=== PATIENT | female | born 1945 | race Caucasian/White ===

== ENCOUNTER 2016-08-25 12:11 | Emergency (ER) | payer MEDICARE ==
[2016-08-25] MEDS ORDERED: Ondansetron ODT 4 MG TAB ONE (12:43)
--- NOTE | 2016-08-25 13:35 | CT ---
EXAM: NONCONTRAST HEAD CT: COMPARISON: 12/10/14. HISTORY: Trauma. TECHNIQUE: A noncontrast head CT is performed from the skull base to the skull vertex. FINDINGS: There is a small right parietal scalp hematoma, near the vertex. The underlying calvarium is intact . Remainder of the calvarium is also intact. No parenchymal hemorrhage. No extraaxial hematoma. No midline shift. Basilar cisterns are patent. Age-appropriate atrophy. Cortical mosley-white matter differentiation is preserved. Ventricles and sulci are patent and symmetric. Stable calcified mass, extraaxial in location measuring 2.0 cm. Calcified meningioma is favored. IMPRESSION: 1. No intracranial posttraumatic sequelae. 2. Chronic small-vessel ischemic changes of white matter. 3. Calcified meningioma, stable. POS: [facility]
--- NOTE | 2016-08-25 13:37 | CT ---
CT CERVICAL SPINE NONCONTRAST: History: Neck injury. FINDINGS: There is straightening of the normal lordotic curvature. Vertebral body height and alignment are ma intained. Osteophytosis is present throughout the vertebral bodies and facets. No acute fracture o r dislocation are evident. IMPRESSION: Cervical spondylosis. No acute osseous abnormalities are demonstrated. POS: [facility]
[2016-08-25] MEDS ORDERED: HYDROcodone/Acetaminophen 5/325 mg Tablet ONE (13:55)
[2016-08-25] MEDS ORDERED: Ibuprofen 600 MG TAB ONE (13:55)
--- NOTE | 2016-08-25 15:38 | PICIS ---
[facility] EMERGENCY RECORD TRIAGE (WedAug 25, 2016 12:20 MDEB) PATIENT: NAME: Chaparrita Patterson, AGE: 71, GENDER: female, : Wed1945, TIME OF GREET: WedAug 25, 2016 12:12, PREFERRED LANGUAGE: Chinese, RACE: WHITE, ETHNICITY: Not or , FALL RISK: NO, ECODE BILLING MAP: [facility], SSN: [id number], Zip Code: [address], KG WEIGHT: [phone], PHONE: , , , PERSON ID: [id number], PCP: MD Conley Grover. (WedAug 25, 2016 12:20 MDEB) TRIAGE NOTES: FALL ONTO CONCRETE DRIVING FROM STEP LADDER - DENIES LOC. (WedAug 25, 2016 12:20 MDEB) COMPLAINT: FELL-HEAD PAIN. (WedAug 25, 2016 12:20 MDEB) ADMISSION: URGENCY: 3 Urgent, ADMISSION SOURCE: Home, TRANSPORT: Walk-in, BED: TRIAGE. (WedAug 25, 2016 12:20 MDEB) ASSESSMENT: Assessment: R WRIST PAIN, HEAD, NECK ET L SHOULDER PAIN. LARGE HEMATOMA TO R OCCIPUT. (WedAug 25, 2016 12:20 MDEB) TRIAGE SCREENING: Patient denies suicidal ideation, Patient denies presence of domestic violence. (WedAug 25, 2016 12:20 MDEB) PROVIDERS: TRIAGE NURSE: Jessica Hunter RN. (WedAug 25, 2016 12:20 MDEB) VITAL SIGNS: BP 158/83, Pulse 83, Resp 20, Temp 98.3, (Tympanic), O2 Sat 96, Time 08/25/2016 12:17. (12:17 MDEB) PREVIOUS VISIT ALLERGIES: No Known Drug Allergies, Laverne Flavoring. (WedAug 25, 2016 12:20 MDEB) KNOWN ALLERGIES No Known Allergies No Known Drug Allergies (Unconfirmed) Laverne Flavoring (Unconfirmed) CURRENT MEDICATIONS No recorded medications VITAL SIGNS (12:17 MDEB) VITAL SIGNS: BP: 158/83, Pulse: 83, Resp: 20, Temp: 98.3 (Tympanic), O2 sat: 96, Time: 08/25/2016 12:17. NURSING ASSESSMENT: PRIMARY SURVEY TRAUMA (12:32 MDEB) MECHANISM OF INJURY: Mechanism of injury fall, from ladder, from height less than 3 feet, down 2 stairs, landing on hard surface, landing on head, landing on left side, landing on right side, Notes: LARGE HEMATOMA TO R OCCIPUT R WRIST PAIN, L SCAPULAR PAIN. AIRWAY AND C-SPINE: Primary trauma survey airway and cervical spine assessment findings include airway patent, Gag reflex intact, Cervical spine tenderness, REPORTS STIFFNESS C-COLLAR APPLIED. BREATHING: Primary trauma survey breathing assessment findings &a-1R&a+25V*p+0X*c2261K*c202B*c15G*c2P*p-0X&a-25V&a+1R Name: Chaparrita Patterson : 1945 F71 MedRec: [id number] AcctNum: [id number] Prepared: Asher Aug 25, 2016 15:47 by Interface Page 1 of 10 pMD [facility] EMERGENCY RECORD include trachea midline, Breath sounds equal. CIRCULATION: Primary trauma survey circulation assessment findings include palpable pulse, Heart sounds normal. DISABILITY: Primary trauma survey disability assessment findings include patient alert and oriented to person, place and time, Pupils equally round and reactive to light, Movement to all extremities, GCS:, Eye opening: (4) - Spontaneous, Verbal: (5) - Oriented/conversive, Motor: (6) - Obeys commands/Spontaneous, GCS Total: 15. NOTES: Emotional support needed and given, Patient tolerated procedure well. NURSING ASSESSMENT: SECONDARY SURVEY TRAUMA (12:35 MDEB) MECHANISM OF INJURY: Mechanism of injury fall, from standing, from height less than 3 feet, down 2 stairs, landing on hard surface, landing on head, landing on left side, landing on right side. CONSTITUTIONAL: Patient arrives ambulatory, Gait steady, History obtained from patient, Patient appears, in distress due to pain, obese, uncomfortable, Patient cooperative, Patient alert, Oriented to person, place and time, Skin warm, Skin dry, Skin normal in color, Mucous membranes pink, Mucous membranes moist, Patient is well-groomed, Patient complains of R SIDE HEAD, R WRIST, L SCAPULAR PAIN, PT PRESENTS WITH ICE PACK TO HEAD - R SIDE OCCIPUT. PAIN: aching pain, on a scale 0-10 patient rates pain as 8, ICE PACK APPLIED BY PT, Pain exacerbated by nothing. SKIN: Skin assessment findings include skin warm, Skin dry, Skin normal in color, Inspection findings include abrasion, to R WRIST. BURN LOCATION: N/A. NEURO: Pupils equally round and reactive to light, Left pupil 3 mm in size, Right pupil 3 mm in size, Able to close eyes, Face symmetrical, Speech normal, GCS:, Eye opening: (4) - Spontaneous, Verbal: (5) - Oriented/conversive, Motor: (6) - Obeys commands/Spontaneous, GCS Total: 15, Associated with nausea. EYES: Eye assessment findings include orbits normal, Eye lids normal, Conjunctiva normal, Sclera normal, Cornea clear, Iris normal, Pupils equally round and reactive to light. HEAD TRAUMA: Inspection findings include swelling, to R SIDE OCCIPUT, Notes: PT PRESENTED WITH ICE PACK TO HEAD - PT DENIES LOC. NECK: Neck assessment findings include trachea midline, Notes: C/O STIFFNESS - C-COLLAR APPLIED. NECK TRAUMA: Neck trauma assessment findings include trachea midline. BACK: Back assessment findings include tenderness to, &a-1R&a+25V*p+0X*r5442Q*c202B*c15G*c2P*p-0X&a-25V&a+1R Name: Chaparrita Patterson : 1945 F71 MedRec: [id number] AcctNum: [id number] Prepared: Asher Aug 25, 2016 15:47 by Interface Page 2 of 10 pMD [facility] EMERGENCY RECORD the left upper back, Notes: TO SCAPULA. BACK TRAUMA: Notes: SKIN TO R WRIST ABRASION OPEN. DRIED BLOOD TO AREA. RESPIRATORY/CHEST: Breath sounds clear, Respiratory assessment findings include respiratory effort easy, Respirations regular, Conversing normally, Neck and chest exam findings include trachea midline, Chest expansion equal, Chest movement symmetrical. CARDIOVASCULAR: Cardiovascular assessment findings include heart rate normal, Heart rhythm, sinus arrhythmia. THORACIC TRAUMA: Thoracic trauma assessment findings include chest movement symmetrical. ABDOMEN: Abdomen assessment findings include abdomen symmetrical, Abdomen soft. GENITOURINARY FEMALE: Notes: DEFERRED AT THIS TIME. LEFT UPPER EXTREMITY: Left upper extremity assessment findings include capillary refill less than 2 seconds, Skin color normal to hand, Skin temperature to hand warm, Distal sensation intact, Muscle tone normal. RIGHT UPPER EXTREMITY: Right upper extremity assessment findings include capillary refill less than 2 seconds, Skin color normal to hand, Skin temperature to hand warm, Distal sensation intact, Muscle tone normal, Inspection findings include abrasion, to R POSTERIOR WRIST. UPPER EXTREMITY TRAUMA: Notes: BLEEDING TO ABRASION CONTROLLED. LEFT LOWER EXTREMITY: Left lower extremity assessment findings include capillary refill less than 2 seconds, Skin color normal, Skin temperature warm, Distal sensation intact, Muscle tone normal. RIGHT LOWER EXTREMITY: Right lower extremity assessment findings include capillary refill less than 2 seconds, Skin color normal, Skin temperature warm, Distal sensation intact, Muscle tone normal. PSYCH/SOCIAL: Psychiatric/social assessment findings include affect normal. NOTES: Emotional support needed and given, Patient tolerated procedure well. SAFETY: Cart/Stretcher in lowest position, Family at bedside, Call light within reach, Hospital ID band on. NURSING PROCEDURE: NURSE NOTES NURSES NOTES: Notes: PT RETURNED TO ROOM. (13:14 PATRICK) Notes: PT RETURNED TO MONITORING EQUIPMENT - PAIN TO HEAD RATED 7/10. (13:17 PATRICK) ORDER DETAILS Order Name: C SPINE CERV COLLAR APPLICATIO, Status: Done, Time: 12:50 08/25/2016, User: PATRICK, - Ordered for: MD Selby Anthony, - Entered by: MD Selby Anthony - Tue Aug 25, 2016 12:43, - Quantity: 1, &a-1R&a+25V*p+0X*r5522J*c202B*c15G*c2P*p-0X&a-25V&a+1R Name: Leonardo Chaparrita Ajay : 1945 F71 MedRec: [id number] AcctNum: [id number] Prepared: Asher Aug 25, 2016 15:47 by Interface Page 3 of 10 pMD [facility] EMERGENCY RECORD Order Name: CT Brain WO Con, Status: Active, Time: 12:32 08/25/2016, User: HERBIE, - Ordered for: MD Selby Anthony, - Entered by: MD Selby Anthony - Tue Aug 25, 2016 12:32, - Quantity: 1, Order Name: CT Cervical Spine WO Con, Status: Active, Time: 12:32 08/25/2016, User: HERBIE, - Ordered for: MD Selby Anthony, - Entered by: MD Selby Anthony - WedAug 25, 2016 12:32, - Quantity: 1. MEDICATION ADMINISTRATION SUMMARY Drug Name: HYDROcodone-acetaminophen, Dose Ordered: 5/325 tab(s), Route: Oral, Status: Given, Time: 13:57 08/25/2016, Drug Name: ibuprofen, Dose Ordered: 600 mg, Route: Oral, Status: Given, Time: 13:55 08/25/2016, Drug Name: Zofran ODT, Dose Ordered: 8 mg, Route: Oral, Status: Given, Time: 12:45 08/25/2016, Detailed record available in Medication Service section. MEDICATION SERVICE HYDROcodone-acetaminophen: Order: HYDROcodone-acetaminophen (hydrocodone bitartrate/acetaminophen) - Dose: 5/325 tab(s) : Oral Schedule: Now Ordered by: Victor Manuel Selby MD Entered by: Victor Manuel Selby MD WedAug 25, 2016 13:53 , Acknowledged by: Jessica Hunter RN WedAug 25, 2016 13:54 Documented as given by: Jessica Hunter RN Aug 25, 2016 13:57 Patient, Medication, Dose, Route and Time verified prior to administration. Amount given: 5/325 MG, Site: Medication administered P.O., Correct patient, time, route, dose and medication confirmed prior to administration, Patient advised of actions and side-effects prior to administration, Allergies confirmed and medications reviewed prior to administration, Patient in position of comfort, Side rails up, Cart in lowest position, Family at bedside. ibuprofen: Order: ibuprofen - Dose: 600 mg : Oral Schedule: Now Ordered by: Victor Manuel Selby MD Entered by: Victor Manuel Selby MD WedAug 25, 2016 13:53 , Acknowledged by: Jessica Hunter RN WedAug 25, 2016 13:54 Documented as given by: Jessica Hunter RN WedAug 25, 2016 13:55 Patient, Medication, Dose, Route and Time verified prior to administration. Amount given: 600 MG, Site: Medication administered P.O., Correct patient, time, route, dose and medication confirmed prior to administration, Patient advised of actions and side-effects prior to administration, Allergies confirmed and medications reviewed prior to &a-1R&a+25V*p+0X*t0054C*c202B*c15G*c2P*p-0X&a-25V&a+1R Name: Chaparrita Patterson : 1945 F71 MedRec: [id number] AcctNum: [id number] Prepared: WedAug 25, 2016 15:47 by Interface Page 4 of 10 pMD [facility] EMERGENCY RECORD administration, Patient in position of comfort, Side rails up, Cart in lowest position, Family at bedside. Zofran ODT: Order: Zofran ODT (ondansetron) - Dose: 8 mg : Oral Schedule: Now Ordered by: Victor Manuel Selby MD Entered by: Victor Manuel Selby MD WedAug 25, 2016 12:42 Documented as given by: Jessica Hunter RN WedAug 25, 2016 12:45 Patient, Medication, Dose, Route and Time verified prior to administration. Amount given: 8 MG, Site: Medication administered P.O., Correct patient, time, route, dose and medication confirmed prior to administration, Patient advised of actions and side-effects prior to administration, Allergies confirmed and medications reviewed prior to administration, Patient in position of comfort, Side rails up, Cart in lowest position, Family at bedside. HPI FALL (12:47 ABUS) CHIEF COMPLAINT: Patient presents for evaluation of fall, from ladder, down 2 stairs, landing on hard surface, landing on head. HISTORIAN: History provided by patient, 71 yr old F with known benign brain tumors and CAD s/p stents on asa only had a mechanical fall while standing on a 2 step kitchen ladder out in the drive away. Denies any LOC, changes in vision, but has a headache and nausea. LOCATION: Symptoms are localized, most severe to Occiput. QUALITY: Pain is dull in nature, described as aching. TIME COURSE: Sudden onset of symptoms, just prior to arrival, There has been no change in the patient's symptoms over time, are constant. SEVERITY: Currently symptoms are mild. ASSOCIATED WITH: Associated with neck pain. EXACERBATED BY: Patient's condition exacerbated by nothing. RELIEVED BY: Patient's condition relieved by nothing. ROS (12:51 ABUS) CONSTITUTIONAL: Negative constitutional review of systems, Historian denies chills, denies fever. EYES: Negative eye review of systems, Historian denies eye pain, denies vision changes. ENT: Negative ears, nose, throat review of systems, Historian denies rhinorrhea, denies sore throat, denies voice changes. CARDIOVASCULAR: Negative cardiovascular review of systems, Historian denies chest pain, denies palpitations. RESPIRATORY: Negative respiratory review of systems, Historian denies cough, denies shortness of breath. GI: Negative gastrointestinal review of systems, Historian denies abdominal pain, denies constipation, denies diarrhea, denies nausea, denies vomiting. &a-1R&a+25V*p+0X*j6949W*c202B*c15G*c2P*p-0X&a-25V&a+1R Name: Chaparrita Patterson : 1945 F71 MedRec: [id number] AcctNum: [id number] Prepared: WedAug 25, 2016 15:47 by Interface Page 5 of 10 pMD [facility] EMERGENCY RECORD GENITOURINARY FEMALE: Negative genitourinary review of systems, Historian denies dysuria, denies frequency. MUSCULOSKELETAL: Negative musculoskeletal review of systems, Historian denies back pain, denies fall, denies injury. SKIN: Negative skin review of systems, Historian denies rash, denies skin changes. NEUROLOGIC: Historian denies confusion, denies focal weakness, denies gait changes, reports headache, denies paralysis, denies paresthesias, denies seizures, denies sensory changes, denies speech changes. HEMO/LYMPHATIC: Normal hematologic/lymphatic system review, Historian denies abnormal blood clotting. ALLERGIC/IMMUNOLOGIC: Normal allergy/immunologic system review, Historian denies frequent infections. PAST MEDICAL HISTORY (WedAug 25, 2016 12:20 MDEB) MEDICAL HISTORY: Notes: VERIFIED 12-10-14, Flu vaccine up to date, Tetanus not up to date, Pneumococcal vaccine up to date, Past medical history includes cardiac history, coronary artery disease, Past medical history includes history of diabetes, Past medical history includes history of hyperlipidemia, high cholesterol, currently being treated, Past medical history includes history of hypertension. FEMALE SURGICAL HISTORY: VERIFIED 12-10-14, cardiac stents x 3, bilateral cataract surgery,, Brain surgery for meningioma. PSYCHIATRIC HISTORY: Notes: VERIFIED 12-10-14, Psychiatric history includes, depression. SOCIAL HISTORY: Patient denies alcohol use, Patient denies drug use, Patient has no smoking history. PHYSICAL EXAM (12:51 ABUS) CONSTITUTIONAL: Vital signs reviewed, Patient afebrile, Pulse normal, Blood pressure normal, Respiratory rate normal, Patient appears non toxic, Patient appears pain free, Patient alert and oriented to person, place and time. HEAD: Head exam included findings of, no Donahue's sign, No raccoon eyes, Contusion to right occipital, Abrasion to right occipital, normocephalic. EYES: Eye exam normal, Eye exam included findings of eyelids normal to inspection, Pupils equally round and reactive to light, Extraocular muscles intact, no nystagmus. ENT: ENT exam normal, Ear exam normal, external ear normal, tympanic membranes normal, no bleeding, Pharynx exam normal, Uvula exam normal, Tonsil exam normal, Mouth exam normal, mucous membranes moist, teeth normal. NECK: Neck exam normal, Neck exam included findings of normal range of motion, Trachea midline, no meningeal signs, no cervical adenopathy, no tenderness. RESPIRATORY CHEST: Respiratory and chest exam normal, Respiratory exam included findings of no respiratory distress, Breath sounds &a-1R&a+25V*p+0X*v4901M*c202B*c15G*c2P*p-0X&a-25V&a+1R Name: Chaparrita Patterson : 1945 F71 MedRec: [id number] AcctNum: [id number] Prepared: Asher Aug 25, 2016 15:47 by Interface Page 6 of 10 pMD [facility] EMERGENCY RECORD clear. CARDIOVASCULAR: Cardiovascular assessment normal, Cardiovascular exam included findings of heart rate regular rate and rhythm, Heart sounds normal. ABDOMEN FEMALE: Abdominal exam included findings of abdomen nontender, Bowel sounds normal, no distension, no mass, no pulsatile masses, no peritoneal signs, no rigidity, no guarding, no rebound, Rovsing's sign absent. BACK: Back exam normal, Back exam included findings of normal inspection, range of motion normal, no tenderness. UPPER EXTREMITY: Upper extremity exam normal, Upper extremity exam included findings of inspection normal, Range of motion normal, Motor strength normal, Sensation intact, Radial pulse normal. LOWER EXTREMITY: Lower extremity exam normal, Lower extremity exam included findings of inspection normal, Range of motion normal, Motor strength normal, Sensation intact, Posterior tibial pulse normal, Pedal pulse normal. NEURO: Neuro exam normal, Neuro exam findings include patient oriented to person, place and time, Speech normal, Gait normal, Cranial nerves intact, no focal motor deficits, no focal sensory deficits. SKIN: Skin exam normal, Skin exam included findings of skin warm, dry, and normal in color, no rash. PSYCHIATRIC: Psychiatric exam normal, Normal affect. EVENTS TRANSFER: Triage to Emergency Triage. (WedAug 25, 2016 12:20 MDEB) Emergency Triage to Main ED -01. (12:20 MDEB) Emergency Main ED -01 to Holding. (14:19 SFRE) Removed from Emergency Holding. (15:36 MDEB) RADIOLOGYINTERPRETATION (13:28 ABUS) HEAD: Head CT negative, without contrast, no bleed, no mass, no acute ischemic stroke, no acute changes. NECK: Cervical spine CT negative, no fracture, no subluxation, no bony lesion, no cord compression. ICU CLERK: Preliminary review of CT scans by, ED Physician, Radiologist. DOCTOR NOTES (12:53 ABUS) TEXT: 71 yr old F with known benign brain tumors and CAD s/p stents on asa only had a mechanical fall while standing on a 2 step kitchen ladder out [place] the drive away. EXAM: Contusion to the back of head. DDX: Contusion, TBI, SAH, SDH, EDH PLAN: CT head and cspine and ccollar Dispo:. PROBLEM LIST &a-1R&a+25V*p+0X*l7529O*c202B*c15G*c2P*p-0X&a-25V&a+1R Name: Chaparrita Patterson : 1945 F71 MedRec: [id number] AcctNum: [id number] Prepared: WedAug 25, 2016 15:47 by Interface Page 7 of 10 pMD [facility] EMERGENCY RECORD No recorded problems DIAGNOSIS (13:56 ABUS) FINAL: PRIMARY: Contusion. DISPOSITION PATIENT: Disposition Type: Discharge, Disposition: *Discharge Home, Condition: Good. (13:56 ABUS) Patient left the department. (15:36 MDEB) INSTRUCTION (13:57 ABUS) DISCHARGE: HEADACHE, UNSPECIFIED. FOLLOWUP: MD Jarvis, Steven, [facility], [address] [place] [address], [facility] [address], , Follow up with Primary Care Physician in 2-3 days. SPECIAL: As discussed in the ER before you left, please follow up with your primary care doctor or call the referral made for you here in the ED today to establish outpatient follow up for your medical care. Please come back sooner if you start to develop fever, worsening pain, swelling, changes in vision, nausea, tingling or numbness, or symptoms that are new or symptoms the concern you. PRESCRIPTION (13:55 ABUS) Flexeril: TABLET : 5 mg : ORAL : Quantity: 1 Unit: tab(s) Route: ORAL Schedule: every 8 hours PRN Dispense: 6 Unit: tab(s) May substitute. Refills: No Refills . NOTES: No Refills. acetaminophen-codeine: TABLET : 300 mg-30 mg : ORAL : Quantity: 1 Unit: tab(s) Route: ORAL Schedule: every 6 hours PRN Dispense: 8 Unit: tab(s) May substitute. Refills: No Refills . NOTES: ^s=No Refills No Refills. IMAGING (14:36 JPAR) *DISCHARGE INSTRUCTIONS RECEIPT: Image captured from scanner. *SUPPLY CHARGE SHEET: Image captured from scanner. DME FORM: Image captured from scanner. ADMIN (15:33 ABUS) DIGITAL SIGNATURE: MD Selby Anthony. RESULTS (15:33 ABUS) RADIOLOGY: CT Brain WO Con Observe DT: WedAug 25, 2016 12:33, BR EXAM: NONCONTRAST HEAD CT: COMPARISON: &a-1R&a+25V*p+0X*y4732E*c202B*c15G*c2P*p-0X&a-25V&a+1R Name: Chaparrita Patterson : 1945 F71 MedRec: [id number] AcctNum: [id number] Prepared: WedAug 25, 2016 15:47 by Interface Page 8 of 10 pMD [facility] EMERGENCY RECORD 12/10/14. HISTORY: Trauma. TECHNIQUE: A noncontrast head CT is performed from the skull base to the skull vertex. FINDINGS: There is a small right parietal scalp hematoma, near the vertex. The underlying calvarium is intact . Remainder of the calvarium is also intact. No parenchymal hemorrhage. No extraaxial hematoma. No midline shift. Basilar cisterns are patent. Age-appropriate atrophy. Cortical mosley-white matter differentiation is preserved. Ventricles and sulci are patent and symmetric. Stable calcified mass, extraaxial in location measuring 2.0 cm. Calcified meningioma is favored. IMPRESSION: 1. No intracranial posttraumatic sequelae. 2. Chronic small-vessel ischemic changes of white matter. 3. Calcified meningioma, stable. POS: [facility] . CT Cervical Spine WO Con Observe DT: WedAug 25, 2016 12:33, CSP CT CERVICAL SPINE NONCONTRAST: History: Neck injury. FINDINGS: There is straightening of the normal lordotic curvature. Vertebral body height and alignment are ma intained. Osteophytosis is present throughout the vertebral bodies and facets. No acute fracture o r dislocation are evident. IMPRESSION: Cervical spondylosis. No acute osseous abnormalities are demonstrated. POS: [facility] &a-1R&a+25V*p+0X*m5515Y*c202B*c15G*c2P*p-0X&a-25V&a+1R Name: Chaparrita Patterson : 1945 71 MedRec: [id number] AcctNum: [id number] Prepared: WedAug 25, 2016 15:47 by Interface Page 9 of 10 pMD [facility] EMERGENCY RECORD . Erickson: HERBIE=MD Bal, Victor Manuel WATT=LEO Art Julia MDEB=AMELIA Hunter, Jessica CHACON=AMELIA Berkowitz, Marly &a-1R&a+25V*p+0X*d5257J*c202B*c15G*c2P*p-0X&a-25V&a+1R Name: Chaparrita Patterson : 1945 F71 MedRec: [id number] AcctNum: [id number] Prepared: WedAug 25, 2016 15:47 by Interface Page 10 of 10 pMD [facility]
== END 2016-08-25 14:23 | disposition home or self-care (01) ==
LOC: MADERS 12:11
DX: S00.03XA Contusion of scalp, initial encounter (principal); E78.5 Hyperlipidemia, unspecified; I10 Essential (primary) hypertension; E11.9 Type 2 diabetes mellitus without complications; F32.9 Major depressive disorder, single episode, unspecified; W11.XXXA Fall on and from ladder, initial encounter
CPT/HCPCS: 70450; 72125; Q0162

== ENCOUNTER 2016-10-19 11:02 | Outpatient (CLI) | payer MEDICARE ==
[2016-10-19 12:27] LABS: ALT (SGPT) 22 U/L (0-55); AST (SGOT) 18 U/L (5-34); Albumin 3.5 g/dL (3.4-4.8); Alkaline Phosphatase 60 U/L (40-150); Anion Gap 10 mmol/L (10-20); BUN (Urea Nitrogen) 17 mg/dL (9.8-20.1); Bilirubin, Direct 0.3 mg/dL (0.1-0.3); Bilirubin, Total 0.6 mg/dL (0.2-1.2); Calc. Creatinine Clearance 0 mL/min (70-130); Carbon Dioxide 29 mmol/L (23-31); Chloride 107 mmol/L (98-107); Cholesterol 139 mg/dL (< 200 Desired); Estimated GFR-MDRD 69; Glucose 88 mg/dL (83-110); HDL Cholesterol 68 mg/dL (>60 Neg Risk); LDL Cholesterol, Calculated 60 mg/dL; Potassium 4.2 mmol/L (3.5-5.1); Protein, Total 5.9 g/dL (5.8-8.1); Sodium 142 mmol/L (136-145); Triglycerides 53 mg/dL (Less than 150)
== END 2016-10-19 11:03 ==
LOC: MADLABBHPM 11:02
PROVIDERS: ATTEND Family Medicine
DX: E11.9 Type 2 diabetes mellitus without complications (principal)
CPT/HCPCS: 36415; 80048; 80061; 80076

== ENCOUNTER 2017-01-01 09:04 | Emergency (ER) | payer MEDICARE ==
[2017-01-01 11:25] LABS: Clarity Hazy (Clear)
[2017-01-01 11:26] LABS: Bilirubin Negative (Negative); Blood, Urine Large (Negative); Glucose, Urine (Dipstick) Negative (Negative); Leukocyte Moderate (Negative); Nitrite Negative (Negative); Protein, Urine (Dipstick) 100 mg/dL (Neg-Trace); Specific Gravity, Urine 1.025 (1.002-1.036); Urobilinogen 0.2 mg/dL (0.2-1.0); pH, Urine 5.5 (5.0-9.0)
[2017-01-01 11:31] LABS: Squamous Epithelial 0-3 HPF (0-3)
[2017-01-01 11:32] LABS: Bacteria/HPF 3+ HPF (None Seen)
== END 2017-01-01 11:48 | disposition home or self-care (01) ==
LOC: MADERS 09:04
DX: N39.0 Urinary tract infection, site not specified (principal); R31.9 Hematuria, unspecified; E11.9 Type 2 diabetes mellitus without complications; E78.5 Hyperlipidemia, unspecified; I10 Essential (primary) hypertension; F32.9 Major depressive disorder, single episode, unspecified; Z79.82 Long term (current) use of aspirin; Z79.899 Other long term (current) drug therapy
CPT/HCPCS: 81003; 81015; 87077; 87086; 87186; 99283

== ENCOUNTER 2017-01-19 11:26 | Outpatient (CLI) | payer MEDICARE ==
[2017-01-19 12:24] LABS: Hemoglobin A1c 5.3 % (4.0-6.0)
[2017-01-19 12:33] LABS: ALT (SGPT) 20 U/L (8-55); AST (SGOT) 20 U/L (5-34); Albumin 3.5 g/dL (3.4-4.8); Alkaline Phosphatase 61 U/L (40-150); Anion Gap 12 mmol/L (10-20); BUN (Urea Nitrogen) 17 mg/dL (9.8-20.1); Bilirubin, Direct 0.2 mg/dL (0.1-0.3); Bilirubin, Total 0.5 mg/dL (0.2-1.2); Calc. Creatinine Clearance 0 mL/min (70-130); Calcium 8.7 mg/dL (7.8-10.44); Carbon Dioxide 26 mmol/L (23-31); Cardiac Risk 2.1 (Less than 4.5); Chloride 109 mmol/L (98-107); Cholesterol 133 mg/dl (< 200 Desired); Estimated GFR-MDRD 66; Glucose 90 mg/dL (83-110); HDL Cholesterol 64 mg/dL (>60 Neg Risk); LDL Cholesterol, Calculated 56 mg/dL; Potassium 4.4 mmol/L (3.5-5.1); Protein, Total 6.1 g/dL (6.0-8.3); Sodium 143 mmol/L (136-145); Triglycerides 67 mg/dL (Less than 150)
== END 2017-01-19 11:27 | disposition home or self-care (01) ==
LOC: MADLABBHPM 11:26
PROVIDERS: ATTEND Family Medicine
DX: E11.9 Type 2 diabetes mellitus without complications (principal); I25.10 Atherosclerotic heart disease of native coronary artery without angina pectoris
CPT/HCPCS: 36415; 80048; 80061; 80076; 83036

== ENCOUNTER 2017-04-21 11:08 | Outpatient (CLI) | payer MEDICARE ==
[2017-04-21 11:59] LABS: ALT (SGPT) 22 U/L (8-55); AST (SGOT) 22 U/L (5-34); Albumin 3.7 g/dL (3.4-4.8); Alkaline Phosphatase 58 U/L (40-150); Anion Gap 11 mmol/L (10-20); BUN (Urea Nitrogen) 14 mg/dL (9.8-20.1); Bilirubin, Direct 0.3 mg/dL (0.1-0.3); Bilirubin, Total 0.7 mg/dL (0.2-1.2); Calc. Creatinine Clearance 0 mL/min (70-130); Calcium 9.3 mg/dL (7.8-10.44); Carbon Dioxide 29 mmol/L (23-31); Cardiac Risk 2.2 (Less than 4.5); Chloride 108 mmol/L (98-107); Cholesterol 142 mg/dl (< 200 Desired); Estimated GFR-MDRD 67; Glucose 94 mg/dL (83-110); HDL Cholesterol 65 mg/dL (>60 Neg Risk); LDL Cholesterol, Calculated 60 mg/dL; Potassium 4.3 mmol/L (3.5-5.1); Protein, Total 6.5 g/dL (6.0-8.3); Sodium 144 mmol/L (136-145); Triglycerides 85 mg/dL (Less than 150)
[2017-04-21 14:06] LABS: #Eosinphils 0.2 thou/uL (0.0-0.7); #Lymphocytes 1.4 thou/uL (1.20-3.40); #Monocytes 0.5 thou/uL (0.11-0.59); #Neutrophils 2.2 thou/uL (1.40-6.50); %Basophils 0.8 % (0.0-1.0); %Eosinophils 5.4 % (0.0-10.0); %Monocytes 10.8 % (0.0-10.0); Hemoglobin 13.6 g/dL (12.0-16.0); Mean Corpuscular HGB CONC 31.9 g/dL (32.0-36.0); Mean Corpuscular Hemoglobin 30.1 pg (27.0-31.0); Mean Corpuscular Volume 94.5 fl (81.0-99.0); Mean Platelet Volume 6.4 fL (7.4-10.4); Platelet Count 147 thou/uL (130-400); RBC Distribution Width 13.5 % (11.5-14.5); Red Blood Cell (RBC) Count 4.51 mill/uL (4.20-5.40); White Blood Cell (WBC) Count 4.4 thou/uL (4.8-10.8)
== END 2017-04-21 11:09 | disposition home or self-care (01) ==
LOC: MADLABBHPM 11:08
PROVIDERS: ATTEND Family Medicine
DX: G45.9 Transient cerebral ischemic attack, unspecified (principal); I10 Essential (primary) hypertension
CPT/HCPCS: 36415; 80048; 80061; 80076; 85025

== ENCOUNTER 2017-06-16 14:56 | Emergency (ER) | payer MEDICARE ==
--- NOTE | 2017-06-16 15:29 | RAD ---
RIGHT WRIST 3 VIEWS: HISTORY: Injury. COMPARISON: None. FINDINGS: Intraarticular distal radius fracture with predominantly a transverse oriented fracture along with a sagittal oriented of the lunate fossa. The ulnar stylette appears to be intact. Scapholunate alignm ent appears relatively maintained. No displaced styloid process fracture is appreciated. Moderate degenerative disease of the thumb car pometacarpal joint along with enthesophyte of the intercarpal ligament of the base of the 1st and 2nd metacarpals. IMPRESSION: Mildly impacted intraarticular fracture distal radius with moderate dorsal angulation. POS: [facility]
[2017-06-16] MEDS ORDERED: HYDROcodone/Acetaminophen 5/325 mg Tablet ONE (15:42)
== END 2017-06-16 16:00 | disposition home or self-care (01) ==
LOC: MADERS 14:56
DX: S52.571A Other intraarticular fracture of lower end of right radius, initial encounter for closed fracture (principal); I25.10 Atherosclerotic heart disease of native coronary artery without angina pectoris; E11.9 Type 2 diabetes mellitus without complications; E78.5 Hyperlipidemia, unspecified; I10 Essential (primary) hypertension; F32.9 Major depressive disorder, single episode, unspecified; Z79.82 Long term (current) use of aspirin; Z79.899 Other long term (current) drug therapy; W17.89XA Other fall from one level to another, initial encounter
CPT/HCPCS: 29125

== ENCOUNTER 2018-03-08 16:30 | Emergency (ER) | payer MEDICARE ==
--- NOTE | 2018-03-08 17:03 | RAD ---
CHEST ONE VIEW: 03/08/18 HISTORY: Chest pain. COMPARISON: 08/20/14. FINDINGS: The cardiac silhouette is magnified and enlarged. Shallow inspiration accentuates pulmonary markings. Mediastinum is midline. No lobar consolidation or evidence of pneumothorax. trimming machine operator leads ov erlie the chest. IMPRESSION: Chronic type findings are stable. No active cardiopulmonary abnormalities are demonstrated. POS: [facility]
[2018-03-08 17:10] LABS: #Eosinphils 0.2 thou/uL (0.0-0.7); #Lymphocytes 1.6 thou/uL (1.20-3.40); #Monocytes 0.6 thou/uL (0.11-0.59); #Neutrophils 2.8 thou/uL (1.40-6.50); %Basophils 0.9 % (0.0-1.0); %Eosinophils 3.6 % (0.0-10.0); %Lymphocytes 30.7 % (21.0-51.0); %Monocytes 11.5 % (0.0-10.0); %Neutrophils 53.3 % (42.0-75.0); Hemoglobin 14.4 g/dL (12.0-16.0); Mean Corpuscular HGB CONC 31.8 g/dL (32.0-36.0); Mean Corpuscular Hemoglobin 29.4 pg (27.0-31.0); Mean Corpuscular Volume 92.5 fL (78.0-98.0); Mean Platelet Volume 6.4 fL (7.4-10.4); Platelet Count 169 thou/uL (130-400); RBC Distribution Width 12.6 % (11.5-14.5); White Blood Cell (WBC) Count 5.2 thou/uL (4.8-10.8)
[2018-03-08 17:28] LABS: ALT (SGPT) 32 U/L (8-55); AST (SGOT) 24 U/L (5-34); Alkaline Phosphatase 74 U/L (40-150); Anion Gap 14 mmol/L (10-20); BUN (Urea Nitrogen) 15 mg/dL (9.8-20.1); Bilirubin, Total 0.4 mg/dL (0.2-1.2); Calc. Creatinine Clearance 0 mL/min (70-130); Carbon Dioxide 26 mmol/L (23-31); Chloride 108 mmol/L (98-107); Estimated GFR-MDRD 62; Globulin 2.9 g/dL (2.4-3.5); Glucose 97 mg/dL (83-110); Potassium 4.7 mmol/L (3.5-5.1); Protein, Total 6.9 g/dL (6.0-8.3); Sodium 143 mmol/L (136-145)
[2018-03-08] MEDS ORDERED: Aspirin 325 MG TAB ONE (18:15)
== END 2018-03-08 19:35 | disposition short-term general hospital (02) ==
LOC: MADERS 16:30
DX: R07.2 Precordial pain (principal); E11.9 Type 2 diabetes mellitus without complications; K21.9 Gastro-esophageal reflux disease without esophagitis; D50.0 Iron deficiency anemia secondary to blood loss (chronic); E78.5 Hyperlipidemia, unspecified; I10 Essential (primary) hypertension; Z79.899 Other long term (current) drug therapy; Z79.82 Long term (current) use of aspirin
CPT/HCPCS: 36415; 71045; 80053; 83880; 84484; 85025; 93005

== ENCOUNTER 2018-05-20 16:16 | Outpatient (CLI) | payer MEDICARE ==
--- NOTE | 2018-05-20 17:59 | CT ---
CT OF THE FACE WITHOUT CONTRAST: 05/20/18 INDICATION: Fall with facial injury. COMPARISON: None. FINDINGS: [place] lenses have been replaced. No definite focal facial contusion is evident. The visualized facia l osseous structures are intact. No air fluid level is present. The visualized intracranial contents are unremarkable. IMPRESSION: No acute osseous abnormality. POS: [facility]
--- NOTE | 2018-05-20 18:33 | RAD ---
FIVE VIEWS CERVICAL SPINE INCLUDING AP, LATERAL, OPEN MOUTH ODONTOID AND BOTH OBLIQUE VIEWS CERVICAL SPINE: 05/20/18 Images demonstrate disc space height loss with anterior and posterior osteophytes with anterior bridg ing osteophytes seen at the C5-6 level. Smaller anterior osteophytes also seen anterior to the C4 lev el. There is bilateral C5-6 neural foraminal narrowing. No evidence of acute cervical spine fracture seen. IMPRESSION: Lower cervical changes of spondylosis with bilateral C5-6 neural foraminal narrowing seen. POS: [facility]
--- NOTE | 2018-05-20 18:43 | CT ---
CT OF THE BRAIN WITHOUT CONTRAST: 05/20/18 INDICATION: History of fall with head injury. COMPARISON: Prior exam dated 08/25/16. FINDINGS/IMPRESSION: There is a calcified extra-axial mass overlying the right frontal convexity which is stable from the comparison consistent with small meningioma. There are scattered small areas of dural calcification o verlying both convexities and along the tentorium. There is chronic small vessel white matter ischemi c change. No acute infarct, hemorrhage or hydrocephalus is demonstrated. Septum pellucidum and third ventricle are midline. No definite acute osseous abnormality is evident. POS: [facility]
== END 2018-05-20 16:17 | disposition home or self-care (01) ==
LOC: MADRAD 16:16
PROVIDERS: ATTEND Family Medicine
DX: S00.83XA Contusion of other part of head, initial encounter (principal); G44.319 Acute post-traumatic headache, not intractable; M54.2 Cervicalgia; M47.892 Other spondylosis, cervical region; M99.81 Other biomechanical lesions of cervical region; G93.89 Other specified disorders of brain
CPT/HCPCS: 70450; 70486; 72050

== ENCOUNTER 2019-08-02 01:39 | Emergency (ER) | payer MEDICARE ==
[2019-08-02] MEDS ORDERED: Nitroglycerin 0.4 MG TAB 1 EACH ONE (01:51)
[2019-08-02] MEDS ORDERED: Ondansetron PF 4 MG/2 ML Vial ONE (02:05)
[2019-08-02] MEDS ORDERED: Morphine 4 MG/ML VIAL ONE (02:05)
[2019-08-02 02:22] LABS: Chloride 110 mmol/L (98-107); Potassium 3.6 mmol/L (3.5-5.1); Sodium 142 mmol/L (136-145)
[2019-08-02 02:28] LABS: #Basophils 0.1 thou/uL (0.0-0.2); #Eosinphils 0.2 thou/uL (0.0-0.7); #Lymphocytes 1.5 thou/uL (1.20-3.40); #Monocytes 0.7 thou/uL (0.11-0.59); %Basophils 1.1 % (0.0-1.0); %Eosinophils 2.1 % (0.0-10.0); %Lymphocytes 15.6 % (21.0-51.0); %Monocytes 6.8 % (0.0-10.0); %Neutrophils 74.4 % (42.0-75.0); Hemoglobin 13.4 g/dL (12.0-16.0); Mean Corpuscular HGB CONC 31.7 g/dL (32.0-36.0); Mean Corpuscular Hemoglobin 31.2 pg (27.0-31.0); Mean Corpuscular Volume 98.4 fL (78.0-98.0); Mean Platelet Volume 9.1 fL (7.4-10.4); Platelet Count 184 thou/uL (130-400); RBC Distribution Width 12.8 % (11.5-14.5); White Blood Cell (WBC) Count 9.4 thou/uL (4.8-10.8)
[2019-08-02 02:36] LABS: ALT (SGPT) 40 U/L (8-55); AST (SGOT) 32 U/L (5-34); Albumin 3.6 g/dL (3.4-4.8); Alkaline Phosphatase 54 U/L (40-110); BUN (Urea Nitrogen) 21 mg/dL (9.8-20.1); Bilirubin, Total 0.7 mg/dL (0.2-1.2); Calc. Creatinine Clearance 0 mL/min (70-130); Calcium 8.9 mg/dL (7.8-10.44); Carbon Dioxide 24 mmol/L (23-31); Estimated GFR-MDRD 77; Globulin 2.6 g/dL (2.4-3.5); Glucose 106 mg/dL (83-110); Protein, Total 6.2 g/dL (6.0-8.3)
[2019-08-02 02:43] LABS: Anion Gap 12 mmol/L (10-20)
--- NOTE | 2019-08-02 07:39 | RAD ---
EXAM: Single view of the chest HISTORY: Shortness of breath and chest pain COMPARISON: 04/02/2019 FINDINGS: Single view of the chest shows an enlarged cardiomediastinal silhouette. Bilateral perihil ar fullness is seen. Increased interstitial markings radiate from the hilar region. The bones are unremarkable. IMPRESSION: Findings may be secondary to congestive heart failure with volume overload.
== END 2019-08-02 03:09 | disposition short-term general hospital (02) ==
LOC: MADERS 01:39
DX: R07.9 Chest pain, unspecified (principal); E11.9 Type 2 diabetes mellitus without complications; K21.9 Gastro-esophageal reflux disease without esophagitis; E78.5 Hyperlipidemia, unspecified; E78.00 Pure hypercholesterolemia, unspecified; I10 Essential (primary) hypertension; G47.33 Obstructive sleep apnea (adult) (pediatric); F32.9 Major depressive disorder, single episode, unspecified; Z79.82 Long term (current) use of aspirin; Z79.899 Other long term (current) drug therapy
CPT/HCPCS: 71045; 80053; 83880; 84484; 85025; 93005; 94760; 96374; 96375; J2270; J2405

== ENCOUNTER 2020-01-23 15:27 | Emergency (ER) | payer MEDICARE ==
--- NOTE | 2020-01-23 16:26 | CT ---
Exam: Head CT without contrast HISTORY: Vertigo this morning. Patient fell last night. COMPARISON: 05/20/2018 FINDINGS: Hemorrhage: No intraparenchymal hemorrhage or extra-axial hematoma. Brain parenchyma: Cortical mosley-white matter differentiation is preserved. No mass effect or midline shift. Basilar cisterns are patent.Stable white matter hypodensities due to chronic small vessel ischemic change. Ventricular system: Ventricles and sulci are patent and symmetric. Calvarium: Intact. Sinuses and mastoid air cells: Adequate aeration. Findings: Redemonstration of a 1.9 x 1.9 cm calcified meningioma along the right frontal convexity. N o significant mass effect upon the adjacent cerebrum without significant vasogenic edema or midline shift. IMPRESSION: 1. No intracranial posttraumatic sequelae 2. Stable calcified right frontal meningioma.
--- NOTE | 2020-01-23 16:30 | CT ---
CT CERVICAL SPINE WITH CORONAL AND SAGITTAL REFORMATIONS AND NO IV CONTRAST: 01/23/20 HISTORY: Fall. Neck pain. FINDINGS/IMPRESSION: There is loss of cervical lordosis with straightening of the cervical spine. Multilevel degenerative changes are present. No fracture or subluxation or facet malalignment is seen. POS: [facility]
--- NOTE | 2020-01-23 16:33 | RAD ---
Exam:4 views right knee HISTORY: Fall and pain. COMPARISON: 02/23/2015 FINDINGS: Moderate tricompartmental degenerative change. No fracture or malalignment. No significant joint effusion. IMPRESSION: No fracture.
== END 2020-01-23 17:00 | disposition home or self-care (01) ==
LOC: MADERS 15:27
DX: S16.1XXA Strain of muscle, fascia and tendon at neck level, initial encounter (principal); S80.01XA Contusion of right knee, initial encounter; R42 Dizziness and giddiness; E11.9 Type 2 diabetes mellitus without complications; E78.00 Pure hypercholesterolemia, unspecified; K21.9 Gastro-esophageal reflux disease without esophagitis; I10 Essential (primary) hypertension; E78.5 Hyperlipidemia, unspecified; Z79.899 Other long term (current) drug therapy; Z79.82 Long term (current) use of aspirin; W19.XXXA Unspecified fall, initial encounter; F32.9 Major depressive disorder, single episode, unspecified
CPT/HCPCS: 70450; 72125

== ENCOUNTER 2020-04-02 16:57 | Emergency (ER) | payer MEDICARE ==
--- NOTE | 2020-04-02 18:12 | RAD ---
Exam:Right knee 3 views HISTORY: Pain. Injury. COMPARISON: 01/23/2020 FINDINGS: Mild to moderate tricompartmental degenerative change. No fracture or dislocation. No joint effusion. Possible chondrocalcinosis involving the lateral meniscus. IMPRESSION: Mild to moderate tricompartmental degenerative change. No fracture.
== END 2020-04-02 18:20 | disposition home or self-care (01) ==
LOC: MADERS 16:57
DX: S80.01XA Contusion of right knee, initial encounter (principal); E11.9 Type 2 diabetes mellitus without complications; K21.9 Gastro-esophageal reflux disease without esophagitis; E78.5 Hyperlipidemia, unspecified; E78.00 Pure hypercholesterolemia, unspecified; I10 Essential (primary) hypertension; F32.9 Major depressive disorder, single episode, unspecified; W01.10XA Fall on same level from slipping, tripping and stumbling with subsequent striking against unspecified object, initial encounter

== ENCOUNTER 2020-05-18 10:14 | Emergency (ER) | payer MEDICARE ==
[2020-05-18 10:59] LABS: #Basophils 0.1 thou/uL (0.0-0.2); #Eosinphils 0.2 thou/uL (0.0-0.7); #Lymphocytes 1.1 thou/uL (1.20-3.40); #Monocytes 0.6 thou/uL (0.11-0.59); #Neutrophils 4.8 thou/uL (1.40-6.50); %Basophils 0.9 % (0.0-1.0); %Eosinophils 2.9 % (0.0-10.0); %Lymphocytes 16.4 % (21.0-51.0); %Monocytes 8.1 % (0.0-10.0); %Neutrophils 71.6 % (42.0-75.0); Hemoglobin 12.6 g/dL (12.0-16.0); Mean Corpuscular HGB CONC 32.6 g/dL (32.0-36.0); Mean Corpuscular Hemoglobin 31.8 pg (27.0-31.0); Mean Corpuscular Volume 97.6 fL (78.0-98.0); Mean Platelet Volume 6.7 fL (7.4-10.4); Platelet Count 194 thou/uL (130-400); Red Blood Cell (RBC) Count 3.98 mill/uL (4.20-5.40); White Blood Cell (WBC) Count 6.7 thou/uL (4.8-10.8)
[2020-05-18 11:16] LABS: ALT (SGPT) 41 U/L (8-55); AST (SGOT) 36 U/L (5-34); Albumin 3.6 g/dL (3.4-4.8); Alkaline Phosphatase 58 U/L (40-110); Anion Gap 16 mmol/L (10-20); BUN (Urea Nitrogen) 25 mg/dL (9.8-20.1); Bilirubin, Total 0.5 mg/dL (0.2-1.2); Calc. Creatinine Clearance 0 mL/min (70-130); Calcium 8.6 mg/dL (7.8-10.44); Carbon Dioxide 24 mmol/L (23-31); Chloride 109 mmol/L (98-107); Estimated GFR-MDRD 55; Globulin 2.7 g/dL (2.4-3.5); Glucose 109 mg/dL (83-110); Potassium 3.7 mmol/L (3.5-5.1); Protein, Total 6.3 g/dL (6.0-8.3); Sodium 145 mmol/L (136-145)
--- NOTE | 2020-05-18 12:37 | RAD ---
PORTABLE CHEST: DATE: 05/18/2020. PROVIDED CLINICAL HISTORY: Sternal pain. FINDINGS: Comparison 08/02/2019. Evaluation is limited by patient body habitus. Cardiac silhouette appears enla rged, which may be at least partially on the basis of portable technique. Elevation of the right hem idiaphragm persists. There is no focal consolidation, pleural fluid, or pneumothorax apparent. IMPRESSION: No evidence for an acute cardiopulmonary process. POS: [facility]
--- NOTE | 2020-05-18 13:05 | CT ---
CT BRAIN: DATE: 05/18/2020. PROVIDED CLINICAL HISTORY: Blunt head injury. FINDINGS: Comparison 01/23/2020. The ventricular system appears normal in size and morphology. There is no lópez dence for intracranial hemorrhage or mass effect. Chronic microvascular ischemic changes and calcifi ed meningioma of the right vertex are redemonstrated. The extracranial soft tissues and osseous stru ctures demonstrate no acute findings. IMPRESSION: No evidence for intracranial hemorrhage or mass effect. POS: [facility]
== END 2020-05-18 12:00 | disposition home or self-care (01) ==
LOC: MADERS 10:14
DX: S00.93XA Contusion of unspecified part of head, initial encounter (principal); S20.219A Contusion of unspecified front wall of thorax, initial encounter; I25.10 Atherosclerotic heart disease of native coronary artery without angina pectoris; E78.5 Hyperlipidemia, unspecified; K21.9 Gastro-esophageal reflux disease without esophagitis; I10 Essential (primary) hypertension; E11.9 Type 2 diabetes mellitus without complications; E78.00 Pure hypercholesterolemia, unspecified; G47.33 Obstructive sleep apnea (adult) (pediatric); F32.9 Major depressive disorder, single episode, unspecified; Z86.73 Personal history of transient ischemic attack (TIA), and cerebral infarction without residual deficits; Z79.899 Other long term (current) drug therapy; Z79.82 Long term (current) use of aspirin; V89.2XXA Person injured in unspecified motor-vehicle accident, traffic, initial encounter
CPT/HCPCS: 70450; 71045; 80053; 83880; 84484; 85025; 93005

== ENCOUNTER 2020-06-13 10:33 | Emergency (ER) | payer MEDICARE ==
[2020-06-13] MEDS ORDERED: Sodium Chloride 0.9% 1,000 ML ONE (10:45)
--- NOTE | 2020-06-13 11:00 | RAD ---
XR Chest 1 View Portable HISTORY: Cough COMPARISON: 05/23/2020 FINDINGS: The heart size is enlarged but stable. There is continued elevation the right hemidiaphragm . The lungs are without focal areas of consolidation, pneumothorax or pleural effusions. IMPRESSION: No radiographic evidence of acute cardiopulmonary process.
[2020-06-13 11:25] LABS: #Basophils 0.1 thou/uL (0.0-0.2); #Eosinphils 0.1 thou/uL (0.0-0.7); #Lymphocytes 1.1 thou/uL (1.20-3.40); #Monocytes 0.8 thou/uL (0.11-0.59); #Neutrophils 4.5 thou/uL (1.40-6.50); %Basophils 0.9 % (0.0-1.0); %Eosinophils 1.4 % (0.0-10.0); %Lymphocytes 17.3 % (21.0-51.0); %Monocytes 12.2 % (0.0-10.0); %Neutrophils 68.3 % (42.0-75.0); Hemoglobin 12.4 g/dL (12.0-16.0); Mean Corpuscular HGB CONC 33.5 g/dL (32.0-36.0); Mean Corpuscular Hemoglobin 32.4 pg (27.0-31.0); Mean Corpuscular Volume 96.7 fL (78.0-98.0); Mean Platelet Volume 5.7 fL (7.4-10.4); Platelet Count 258 thou/uL (130-400); RBC Distribution Width 11.7 % (11.5-14.5); Red Blood Cell (RBC) Count 3.82 mill/uL (4.20-5.40); White Blood Cell (WBC) Count 6.5 thou/uL (4.8-10.8)
[2020-06-13 12:00] LABS: ALT (SGPT) 42 U/L (8-55); AST (SGOT) 54 U/L (5-34); Albumin 3.1 g/dL (3.4-4.8); Alkaline Phosphatase 59 U/L (40-110); Anion Gap 13 mmol/L (10-20); BUN (Urea Nitrogen) 21 mg/dL (9.8-20.1); Bilirubin, Total 0.4 mg/dL (0.2-1.2); CK (CPK) 41 U/L (29-168); Calc. Creatinine Clearance 0 mL/min (70-130); Calcium 8.4 mg/dL (7.8-10.44); Carbon Dioxide 25 mmol/L (23-31); Chloride 107 mmol/L (98-107); Estimated GFR-MDRD 54; Globulin 3.1 g/dL (2.4-3.5); Glucose 95 mg/dL (83-110); Lipase 31 U/L (8-78); Potassium 3.1 mmol/L (3.5-5.1); Protein, Total 6.2 g/dL (6.0-8.3); Sodium 142 mmol/L (136-145)
[2020-06-13] MEDS ORDERED: NS 0.9% w/ 20 MEQ KCL 1,000 ML ONE (12:52)
[2020-06-13 14:15] LABS: Bilirubin Negative (Negative); Blood, Urine Negative (Negative); Clarity Clear (Clear); Glucose, Urine (Dipstick) Negative (Negative); Ketone, Urine Negative (Negative); Leukocyte Trace (Negative); Nitrite Negative (Negative); Protein, Urine (Dipstick) Negative (Neg-Trace); Urobilinogen 0.2 mg/dL (Less than 2)
[2020-06-13 14:21] LABS: Bacteria/HPF Rare-Few HPF (None Seen); RBC/HPF 0-3 HPF (0-3); WBC/HPF 0-3 HPF (0-3)
[2020-06-13] MEDS ORDERED: NS 0.9% w/ 20 MEQ KCL 1,000 ML IV SCH (17:30)
[2020-06-13] MEDS ORDERED: Acetaminophen 325 MG TAB PO PRN (17:30)
[2020-06-13] MEDS ORDERED: Ondansetron ODT 4 MG TAB SL PRN (17:30)
[2020-06-13] MEDS ORDERED: Ondansetron PF 4 MG/2 ML Vial IVP PRN (17:30)
== END 2020-06-13 15:45 | disposition short-term general hospital (02) ==
LOC: MADERS 10:33
DX: I95.9 Hypotension, unspecified (principal); K52.9 Noninfective gastroenteritis and colitis, unspecified; E86.0 Dehydration; E78.5 Hyperlipidemia, unspecified; E78.00 Pure hypercholesterolemia, unspecified; I10 Essential (primary) hypertension; K21.9 Gastro-esophageal reflux disease without esophagitis; E11.9 Type 2 diabetes mellitus without complications; M19.90 Unspecified osteoarthritis, unspecified site; F32.9 Major depressive disorder, single episode, unspecified; Z86.73 Personal history of transient ischemic attack (TIA), and cerebral infarction without residual deficits; Z86.011 Personal history of benign neoplasm of the brain; Z79.82 Long term (current) use of aspirin; Z79.899 Other long term (current) drug therapy; Z79.01 Long term (current) use of anticoagulants
CPT/HCPCS: 71045; 80053; 81003; 81015; 82150; 82550; 83690; 84484; 85025; 86140; 93005; 94760; J3480; J7050

== ENCOUNTER 2020-09-10 14:01 | Emergency (ER) | payer MEDICARE ==
[2020-09-10] MEDS ORDERED: Ondansetron ODT 4 MG TAB ONE (14:48)
--- NOTE | 2020-09-10 14:52 | CT ---
M: Thoracic spine CT without contrast HISTORY: Fall. Midline back pain. FINDINGS: Visualized mediastinum, heart, trachea and central bronchi, lung parenchyma and solid organs do not d emonstrate any posttraumatic change. Note is made of a gastric lap band with a small hiatal hernia. No paraspinal mass, lymphadenopathy or hematoma. There is multilevel vacuum disc phenomenon. 12 thora cic-type lumbar vertebra. Thoracic spine vertebral body heights are maintained. No fracture. Limited evaluation of the central spinal canal and neural foramina due to technique. No evidence of h igh-grade stenosis. IMPRESSION: No fracture.
--- NOTE | 2020-09-10 15:01 | CT ---
Exam: Lumbar spine CT without contrast HISTORY: Fall. Pain. Correlation: Abdomen and pelvic CT 06/10/2020 FINDINGS: Note is made of a gastric lap band. No post traumatic changes in the visualized solid organs. Aliment dorina canal is grossly unremarkable. Diverticulosis, without evidence of diverticulitis Symmetric attenuation of the paraspinal muscles. No retroperitoneal mass, lymphadenopathy or hematoma . Visualized sacrum and bony pelvis are intact. There are sclerotic foci in the left iliac wing and lef t sacrum which have been described on previous abdomen and pelvic CT. Visualized sacral ala are preserved. There are 5 lumbar type vertebra. From L1 to L5, lumbar spine vertebral body heights are maintained. Limited evaluation the contents of the central spinal canal and neural foramina due to technique. No evidence of high-grade central canal stenosis. Moderate bilateral neural foraminal narrowing at L5-S1. IMPRESSION: 1. No fracture. 2. Redemonstration of sclerotic foci which have been reported to be increasing in size. Whole-body sridevi ne scan is recommended, nonemergently
[2020-09-10] MEDS ORDERED: Acetaminophen/Codeine 30-300mg Tablet ONE (15:27)
== END 2020-09-10 17:02 | disposition home or self-care (01) ==
LOC: MADERS 14:01
DX: S30.0XXA Contusion of lower back and pelvis, initial encounter (principal); E78.5 Hyperlipidemia, unspecified; I10 Essential (primary) hypertension; E11.9 Type 2 diabetes mellitus without complications; E78.00 Pure hypercholesterolemia, unspecified; Z86.73 Personal history of transient ischemic attack (TIA), and cerebral infarction without residual deficits; Z79.82 Long term (current) use of aspirin; Z79.01 Long term (current) use of anticoagulants; Z79.899 Other long term (current) drug therapy; W01.10XA Fall on same level from slipping, tripping and stumbling with subsequent striking against unspecified object, initial encounter
CPT/HCPCS: 72128; 72131; Q0162